=== PATIENT | female | born 1950 | race African-American/Black ===

== ENCOUNTER → 2020-02-11 | Outpatient (CLI) | payer BC ==
[~2020-02-11] MED LIST: CLON0.1T PO; GABA600T7 PO; LATA2.5D3 EACHEYE; METO-239 PO; OLME1TAB25 PO; TRAM50TA PO
--- NOTE | 2020-02-11 14:26 | PAIN ---
DATE OF SERVICE: 02/11/2020 INITIAL CONSULTATION FOR PAIN CLINIC CHIEF COMPLAINT: Bilateral lower extremity pain. HISTORY OF PRESENT ILLNESS: This is a 69-year-old female who presents with history of pain in the bilateral lower extremities from the knees down to the ankles involved in the heels. The patient reports it is not in the upper legs or the back as much. There is some low back pain on the right side, but mostly in the lower extremities. The patient reports it is worse with walking, standing, much worse at night and cannot stand to have her feet and her heels without touching her bed and puts a pillow under her knees to prop them up. The patient reports the pain is constant, changes during the day, but is better with standing and walking to an extent in the heels, but the legs are more painful and the heels are more painful at night but the legs are less painful. The patient reports that she has had some physical therapy in the past. She has had actually doing exercises currently, has had some epidural injections, which were not significantly helpful. The patient has been on oxycodone, hydrocodone and is currently on tramadol, which does decrease the pain by about 50% or better. The patient reports no side effects with the medication. The patient reports no loss of motor function, but some fatigability, more on the right leg than the left lower extremity. The patient did have MRI scan dated 09/30/2019. Lumbar spine showin. Interval progression of now moderate degeneration, diffuse disk bulging at L2-L3 disk and development of a probable 15 mm extruded disk fragment producing severe focal canal stenosis with near complete effacement of the CSF. 2. Persistent moderate diffuse bulging at L5-S1 disk and moderate bilateral facet arthropathy producing mild bilateral foraminal stenosis, prior L4-L5 posterior fusion, midline decompression with no significant stenosis at the L4-L5 operative level. The patient reports her disability rate of 0-10, 10 being the worst, is a 7 with family home responsibilities, recreation, social activity and occupational activities, no disability with self-care or life support activities. The patient reports the pain keeps her up at night, especially with the pain in the heels. She can lay flat with her legs elevated off the bed, she does get some sleep. The patient reports the pain does not affect her bowel or bladder control, but does affect her ability to walk fairly significantly, although shoes even tight shoes on the heels are not painful during the day. PAST MEDICAL HISTORY: Significant for hypertension, arthritis. PREVIOUS SURGERY: Include hysterectomy and a lumbar diskectomy with fusion. CURRENT MEDICATIONS: Include metoprolol, clonidine, latanoprost, tramadol, gabapentin and olmesartan. ALLERGIES: THE PATIENT IS ALLERGIC TO MECLIZINE, PENICILLIN, CALCIUM CHANNEL BLOCKERS AND SULFA. FAMILY HISTORY: Significant for hypertension. SOCIAL HISTORY: The patient does not drink alcohol, does not use any illegal, illicit or recreational drugs. She does not smoke, is , lives locally in [place], [place]. REVIEW OF SYSTEMS: The patient's review of systems is positive for those items mentioned in history of present illness. All systems reviewed and otherwise negative. It is complete, full and well documented on the patient's chart. PHYSICAL EXAMINATION: VITAL SIGNS: The patient's blood pressure is 159/94, pulse 65, respirations 16, temperature is 98.4 degrees Fahrenheit, height is 5 feet 5 inches, weight is 163 pounds. GENERAL: The patient is awake, alert, oriented, appropriate, very pleasant demeanor. HEENT: Head shows normocephalic, atraumatic. Extraocular movements are intact and symmetrical. Oral cavity: Mucous membranes moist and pink. Dentition is intact. NECK: Shows anterior throat supple without palpable lymphadenopathy noted. Swallow reflex symmetrical. CHEST: Shows normal on inspection. Breath sounds clear bilaterally. HEART: Shows S1, S2 clear. No murmurs auscultated. ABDOMEN: Soft, nontender, nondistended. No palpable organomegaly is noted. No rebound or guarding demonstrated. BACK: Shows spine grossly in the midline. Normal appearing thoracic kyphosis and some slight flattening of lumbar lordotic curvature with well-healed surgical scar. Lumbar distribution of the paraspinous muscle shows symmetrical on inspection, on palpation shows some moderate tenderness diffusely bilaterally going diffusely, more on the right than the left in the low lumbar distribution without asymmetry, without trigger points. The patient shows good rotational motion of lumbar spine with mild tenderness with right and left lateral rotation past 10 degrees as well as extension past 10 degrees, forward flexion at 45 degrees with only very mild pain reported. EXTREMITIES: The patient's lower extremities show deep tendon reflexes at 1+ in the patellar and tendo-calcaneus tendons. Motor exam is strong with 5/5 dorsiflexion and extension bilaterally, quadriceps and hamstring flexion approximately 4 on a scale of 5, but equal and symmetrical bilaterally. Peripheral pulses are 1+ posterior tibia. No peripheral edema is noted. Lower extremities are warm and dry to touch, equal in color and appearance. Straight leg raising noted to be negative for reproduction of radicular symptoms bilaterally. Gaenslen's and Raji's maneuvers are negative bilaterally as well. The patient is able to stand, stand on her toes without significant difficulty or loss of balance, walks with a slight favoring gait, does appear to favor in the right lower extremity to some extent and does not use any assistive devices to ambulate on her visit today. The patient's skin shows warm and dry, good turgor. No edema. No sores, rashes or bruising throughout. IMPRESSION: 1. This is a 69-year-old female with long history approximately 12 years of pain in the lower extremities, worse over the past year to a year and a half. 2. MRI scan of lumbar spine as noted. 3. Hypertension. 4. Arthritis. PLAN: Options were discussed with the patient including conservative medical managements, physical therapies and interventional techniques and she has been through physical therapy treatment, exercise on her own. She is doing fairly well with her tramadol at this time, tolerating it well with no side effects and is interested in interventional techniques. She would like to consider this and speak with her family prior to committing to any interventional techniques and we will have her do that. In the meantime, the patient was given a copy of her MRI scan report as well and will follow up with her primary care physician. In the meantime, we did discuss her tramadol and as we are not prescribing chronic narcotics at this clinic, I do feel that it is appropriate for her to be on the tramadol as she does quite well with this in case her do a very reasonable functional status and again no side effects and she has been on very stable regimen and I feel if it is made, this will be acceptable for her to maintain this at this time through her primary physician. NANETTE SUH MD DR: DIAN/chuckie JOB#: [id number] / [id number] NAYELI Carballo MD
== END ==
LOC: PNCL 12:00
PROVIDERS: ATTEND Anesthesiology
DX: M13.872 Other specified arthritis, left ankle and foot (principal); M13.871 Other specified arthritis, right ankle and foot; I10 Essential (primary) hypertension; M47.817 Spondylosis without myelopathy or radiculopathy, lumbosacral region
CPT/HCPCS: G0463